=== PATIENT | female | born 1990 | race Two or more races ===

== ENCOUNTER 2018-03-07 11:38 | Emergency (ER) ==
[~2018-03-07] VITALS: Ht 162.6 cm; Wt 92.1 kg
[2018-03-07 11:58] VITALS: BP 111/56
[2018-03-07] MEDS ORDERED: KETOROLAC TROMETHAMINE INJ 60 MG/2 ML VIAL IM ONE (12:30)
[2018-03-07] MEDS ORDERED: KETOROLAC TROMETHAMINE INJ 30 MG/ML VIAL ONE (13:14)
== END 2018-03-07 15:27 | disposition home or self-care (01) ==
LOC: ER 11:47
DX: M53.3 Sacrococcygeal disorders, not elsewhere classified (principal)
CPT/HCPCS: 72220; 84703; 96372; 99285; J1885; A4606; Z7610

== ENCOUNTER 2023-03-31 08:45 | Emergency (ER) | payer OTHER ==
[~2023-03-31] VITALS: Ht 162.6 cm; Wt 119.1 kg
[2023-03-31] MEDS ORDERED: AMOX/CLAVULANATE 875 MG TABLET PO ONE (10:30)
[2023-03-31] MEDS ORDERED: AMOX/CLAVULANATE 875 MG TABLET ONE (10:32)
[2023-03-31 10:46] LABS: PREGNANCY TEST URINE QUAL NEGATIVE (NEGATIVE)
[2023-03-31] MEDS ORDERED: ONDA4TAB5 PO (11:54)
[2023-03-31] MEDS ORDERED: IBUP-1955 PO (11:54)
[2023-03-31 12:44] VITALS: BP 120/70; TEMP 98; O2SAT 99
== END 2023-03-31 12:45 | disposition home or self-care (01) ==
LOC: ER 09:02
DX: S06.0XAA Concussion with loss of consciousness status unknown, initial encounter (principal); W22.8XXA Striking against or struck by other objects, initial encounter; Y93.89 Activity, other specified; Y92.89 Other specified places as the place of occurrence of the external cause; Y99.8 Other external cause status
CPT/HCPCS: 70450-TC; 84703-TC